=== PATIENT | female | born 1990 | race Caucasian/White ===

== ENCOUNTER 2020-01-12 11:58 | Emergency (ER) | payer OTHER ==
[~2020-01-12] VITALS: Ht 172.7 cm; Wt 99.8 kg
[2020-01-12 12:02] VITALS: BP 131/91
[2020-01-12] MEDS ORDERED: ADIPEX-P37.5 MG PO (12:10)
== END 2020-01-12 12:52 | disposition home or self-care (01) ==
LOC: ER 11:58
DX: R50.9 Fever, unspecified (principal); Z03.818 Encounter for observation for suspected exposure to other biological agents ruled out; R51 Headache; R05 Cough; I10 Essential (primary) hypertension; F90.9 Attention-deficit hyperactivity disorder, unspecified type; E66.9 Obesity, unspecified; F17.210 Nicotine dependence, cigarettes, uncomplicated; Z79.899 Other long term (current) drug therapy; Z88.0 Allergy status to penicillin